=== PATIENT | male | born 1995 | race Caucasian/White ===

== ENCOUNTER 2022-04-24 01:44 | Inpatient (IN) | payer OTHER, SELFPAY ==
[2022-04-24 01:45] VITALS: BMI 28.1
[2022-04-24 01:50] VITALS: BP 130/82; PULSE 88; RESP 16; TEMP 36.6; O2SAT 97
[2022-04-24 02:26] LABS: Basophils # 0.1 10^3/uL (0.0-0.1); Basophils % 1.3 %; Eosinophils # 0.7 10^3/uL (0.0-0.8); Eosinophils % 8.7 %; Hematocrit 43.4 % (42.0-52.0); Hemoglobin 15.1 g/dL (11.7-16.6); Lymphocytes # 1.9 10^3/uL (0.8-4.8); Lymphocytes % 23.2 %; Mean Corpuscular HGB Conc 34.8 g/dL (30.0-36.0); Mean Corpuscular Hemoglobin 30.3 pg (28.0-34.0); Mean Platelet Volume 9.8 fL (7.4-10.4); Monocytes # 0.8 10^3/uL (0.2-0.9); Monocytes % 9.1 %; Neutrophils # 4.79 10^3/uL (1.8-7.7); Neutrophils % 57.3 %; Nucleated Red Blood Cells % 0 %; Platelet Count 308 10^3/cmm (130-400); Red Blood Count 4.99 10^6/uL (4.1-5.3); White Blood Count 8.4 10^3/uL (4.0-10.0)
[2022-04-24 02:51] LABS: Alanine Aminotransferase 23 U/L (0-41); Albumin Level 4.5 g/dL (3.5-5.2); Alkaline Phosphatase 81 U/L (40-130); Anion Gap 19.6 (5-19); Aspartate Amino Transferase 28 U/L (0-40); Blood Urea Nitrogen 10 mg/dL (6-20); Calcium 9.1 mg/dL (8.5-10.5); Carbon Dioxide 25 mmol/L (22-29); Chloride 103 mmol/L (98-107); Globulin 2.4 g/dL (1.3-4.6); Glomerular Filtration Rate 117.8 mL/min (90-130); Glucose 113 mg/dL (65-115); Osmolality Calculated 296 mOsm/kg (285-295); Potassium 4.6 mmol/L (3.5-5.1); Sodium 143 mmol/L (136-145); Total Bilirubin 0.3 mg/dL (0.15-1.2); Total Protein 6.9 g/dL (6.6-8.7)
[2022-04-24 02:52] LABS: Acetaminophen < 5.0 ug/mL (10-30); Salicylate < 0.3 mg/dL (3-10)
--- NOTE | 2022-04-24 03:38 | W.ED.PSYCHS ---
HPI - Psych General: Chief Complaint: ER Hold Stated Complaint: Suicidal Ideation Time Seen by Provider: 04/24/22 02:14 Source: patient and police History of Present Illness: 27-year-old [employer] with a history of PTSD. He presents after telling police tonight that he wanted to . He has several stresses in his life. He has been trying to get established with psychiatry in the [place] system, but has not been able to get an appointment. He states that they keep getting canceled. He presents tearful, stating that he is ready to . He admits to drinking alcohol, but does not appear intoxicated. MD complaint: suicidal ideation and feels depressed Onset (ago): hour(s) Duration: constant History of same: Yes Relieving factors: none Exacerbating factors: other Associated symptoms: Reports depression and suicidal ideation; Deny auditory hallucinations, visual hallucinations, delusions, homicidal ideation or racing thoughts Treatments prior to arrival: none If self harm: admits thoughts of self harm Review of Systems Const: Denies: fever(s), chills or body aches Eyes: Denies: change in vision ENMT: Denies: throat pain Card: Denies: chest pain or palpitations Resp: Denies: dyspnea, productive cough, non-productive cough or wheezing GI: Denies: abdominal pain, nausea, vomiting, diarrhea or hematochezia Skin/Breast: Denies: rash Neuro: Denies: headache(s), weakness in extremities, dizziness or confusion Psych: Reports: depression and suicidal ideation; Denies: visual hallucinations, auditory hallucinations or homicidal ideation Physical Exam Const: GENERAL APPEARANCE: cooperative and in distress; not ill appearing and not frail appearing ORIENTATION/CONSCIOUSNESS: Yes awake HENMT: COMMON NORMALS: normocephalic, atraumatic and Normal external nose present HEAD & SCALP: normocephalic and atraumatic FACE & SINUS: normal facial exam and face symmetric NOSE: Normal external nose present Eye: COMMON NORMALS: Equal, round and reactive pupils present and EOMs intact bilaterally PUPIL: Yes Equal, round and reactive pupils present Neck/C-Spine: GENERAL: Yes trachea midline Chest: CHEST: Yes Symmetrical chest wall rise Resp: COMMON NORMALS: normal respiratory effort, No retractions, No use of accessory muscles and clear to auscultation bilaterally AUSCULTATION: clear to auscultation bilaterally Cardio: COMMON NORMALS: regular rate and regular rhythm RATE: regular rate RHYTHM: regular rhythm GI: COMMON NORMALS: Normal to inspection, nondistended, normoactive bowel sounds present Extremity: COMMON NORMALS: no pedal edema Neuro: LAURA COMA SCALE: document GCS findings [place] coma scale eye opening: Spontaneous [place] coma scale verbal response: Orientated [place] coma scale motor response: Obey commands [place] coma scale total score: 15 SENSORY EXAM: Yes extremities (intact) Psych: COMMON NORMALS: Normal thought process present and speech normal APPEARANCE: Yes grossly normal ATTITUDE: Yes Withdrawn affect present ACTIVITY/MOTOR BEHAVIOR: Yes psychomotor slowing SPEECH: Yes normal speech MOOD & AFFECT: Yes depressed mood and Yes tearful THOUGHT PROCESS: Normal thought process present THOUGHT CONTENT: Yes Suicidality present, No Homicidality present, No delusions and No Hallucination(s) present ATTENTION/CONCENTRATION: Yes attention grossly intact and Yes concentration grossly intact MEMORY/COGNITION: Yes memory grossly intact and Yes cognition grossly intact INSIGHT: Fair insight present (Psych) JUDGEMENT: Fair judgement present (Psych) Skin: COMMON NORMALS: no rashes or lesions noted GENERAL SKIN EXAM: no rashes or lesions noted Course Vital Signs: Vital signs: Vital Signs Temperature 98.1 F 04/25/22 13:59 Pulse Rate 81 04/25/22 13:59 Respiratory Rate 20 H 04/25/22 13:59 Blood Pressure 117/74 04/25/22 13:59 Pulse Oximetry 97 04/25/22 13:59 Oxygen Delivery Me thod 04/25/22 06:00 MDM - Psych Medical Decision Making Laboratories not remarkable. This patient is well from a physical standpoint. From a psychiatric standpoint, he is incredibly depressed, and has a high likelihood of suicide completion. He will have to be placed under 96-hour hold. Police have written an affidavit. He has been calm and cooperative here. We will speak with psychiatry about a bed. Have tried to call psychiatry 3 times. No answer as of yet. Spoke with psychiatry. We will admit to the NPU. He remains medically stable. Lab Data : 04/24/22 02:19 04/24/22 02:19 Laboratory Results WBC 8.4 10^3/uL (4.0-10.0) 04/24/22 02:19 RBC 4.99 10^6/uL (4.1-5.3) 04/24/22 02:19 Hgb 15.1 g/dL (11.7-16.6) 04/24/22 02:19 Hct 43.4 % (42.0-52.0) 04/24/22 02:19 MCV 87.0 fl (80-94) 04/24/22 02:19 MCH 30.3 pg (28.0-34.0) 04/24/22 02:19 MCHC 34.8 g/dL (30.0-36.0) 04/24/22 02:19 RDW 13.0 % (12.1-15.1) 04/24/22 02:19 Plt Count 308 10^3/cmm (130-400) 04/24/22 02:19 MPV 9.8 fL (7.4-10.4) 04/24/22 02:19 Neut % (Auto) 57.3 % 04/24/22 02:19 Lymph % (Auto) 23.2 % 04/24/22 02:19 [place] % (Auto) 9.1 % 04/24/22 02:19 Eos % (Auto) 8.7 % 04/24/22 02:19 Baso % (Auto) 1.3 % 04/24/22 02:19 Neut # (Auto) 4.79 10^3/uL (1.8-7.7) 04/24/22 02:19 Lymph # (Auto) 1.9 10^3/uL (0.8-4.8) 04/24/22 02:19 [place] # (Auto) 0.8 10^3/uL (0.2-0.9) 04/24/22 02:19 Eos # (Auto) 0.7 10^3/uL (0.0-0.8) 04/24/22 02:19 Baso # (Auto) 0.1 10^3/uL (0.0-0.1) 04/24/22 02:19 Nucleated RBC % (auto) 0 % 04/24/22 02:19 Nucleated RBCs # 0.0 /100WBC 04/24/22 02:19 Sodium 143 mmol/L (136-145) 04/24/22 02:19 Potassium 4.6 mmol/L (3.5-5.1) 04/24/22 02:19 Chloride 103 mmol/L (98-107) 04/24/22 02:19 Carbon Dioxide 25 mmol/L (22-29) 04/24/22 02:19 Anion Gap 19.6 (5-19) H 04/24/22 02:19 BUN 10 mg/dL (6-20) 04/24/22 02:19 Creatinine 0.8 mg/dL (0.7-1.2) 04/24/22 02:19 GFR Calculation 117.8 mL/min (90-130) 04/24/22 02:19 Glucose 113 mg/dL (65-115) 04/24/22 02:19 Calculated Osmolality 296 mOsm/kg (285-295) H 04/24/22 02:19 Calcium 9.1 mg/dL (8.5-10.5) 04/24/22 02:19 Total Bilirubin 0.3 mg/dL (0.15-1.2) 04/24/22 02:19 AST 28 U/L (0-40) 04/24/22 02:19 ALT 23 U/L (0-41) 04/24/22 02:19 Alkaline Phosphatase 81 U/L (40-130) 04/24/22 02:19 Total Protein 6.9 g/dL (6.6-8.7) 04/24/22 02:19 Albumin 4.5 g/dL (3.5-5.2) 04/24/22 02:19 Globulin 2.4 g/dL (1.3-4.6) 04/24/22 02:19 Urine Color Yellow (Yellow) 04/24/22 08:25 Urine Appearance Clear (CLEAR) 04/24/22 08:25 Urine pH 5 (5-7) 04/24/22 08:25 Ur Specific [place] 1.025 (1.005-1.030) 04/24/22 08:25 Urine Protein Neg (Negative) 04/24/22 08:25 Urine Glucose (UA) Norm (Normal) 04/24/22 08:25 Urine Ketones 1+ (Negative) H 04/24/22 08:25 Urine Blood Neg (Negative) 04/24/22 08:25 Urine Nitrate Negative (Negative) 04/24/22 08:25 Urine Bilirubin Neg (Negative) 04/24/22 08:25 Urine Urobilinogen Norm mg/dL (Negative) 04/24/22 08:25 Ur Leukocyte Esterase Negative (Negative) 04/24/22 08:25 Salicylates < 0.3 mg/dL (3-10) L 04/24/22 02:19 Urine Opiates Screen Negative ng/mL (Negative) 04/24/22 08:25 Acetaminophen < 5.0 ug/mL (10-30) L 04/24/22 02:19 Ur Barbiturates Screen Negative ng/mL (Negative) 04/24/22 08:25 Ur Phencyclidine Scrn Negative ng/mL (Negative) 04/24/22 08:25 Ur Amphetamines Screen Negative ng/mL (Negative) 04/24/22 08:25 U Benzodiazepines Scrn Negative ng/mL (Negative) 04/24/22 08:25 Urine Cocaine Screen Negative ng/mL (Negative) 04/24/22 08:25 U Marijuana (THC) Screen Negative ng/mL (Negative) 04/24/22 08:25 Discharge Plan Discharge Patient Disposition: Admitted As Inpatient Admit Provider: Isreal Bowen Clinical Impression: Suicidal ideation, Depression Condition: Stable Discharge Diet: Advance as tolerated Discharge Activity: Resume usual activity Coding Level of Care Code ED Inpatient Coder for Chg Fwd Exam Comprehensive
[2022-04-24 06:12] VITALS: PULSE 99; RESP 16; O2SAT 96
--- NOTE | 2022-04-24 06:15 | PC.NURSE ---
Pt resting in bed with eyes closed, used pulse oximeter to monitor oxygen saturation and advised pt that we will need a urine sample when he needs to urinate.
--- NOTE | 2022-04-24 08:14 | PC.PHAR ---
Addendum entered by Trudi Ang 04/24/22 08:15: [facility] [place] [facility] Original Note: pt states he takes no rx or otc medications
[2022-04-24 08:29] LABS: Add Urine Microscopic? NO; Charge for UA Resulting for Rev
[2022-04-24 08:40] LABS: Amphetamines Screen Urine Negative (Negative); Barbiturates Screen Urine Negative (Negative); Benzodiazepines Screen Urine Negative (Negative); Cocaine Screen Urine Negative (Negative); Opiate Screen Urine Negative (Negative); PCP Screen Urine Negative (Negative); THC Screen Urine Negative (Negative)
[2022-04-24 08:57] VITALS: BP 132/89; PULSE 101; RESP 13; O2SAT 95
[2022-04-24 08:59] LABS: Bilirubin Urine Neg (Negative); Blood Urine Neg (Negative); Glucose Urine UA Norm (Normal); Ketones Urine 1+ (Negative); Leukocyte Esterase Urine Negative (Negative); Nitrate Urine Negative (Negative); Protein Urine Neg (Negative); Specific Gravity, Urine 1.025 (1.005-1.030); Urine Appearance Clear (CLEAR); Urine Color Yellow (Yellow); Urobilinogen Urine Norm (Negative); pH Urine 5 (5-7)
--- NOTE | 2022-04-24 11:50 | PC.NURSE ---
Patient was given breakfast and refused to eat. Lunch was just delivered
[2022-04-24 13:15] VITALS: BP 109/73; PULSE 88; RESP 16; TEMP 36.7; O2SAT 96
[2022-04-24 14:00] VITALS: BP 130/86; PULSE 98; RESP 16; TEMP 36.6; O2SAT 98
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
--- NOTE | 2022-04-24 15:30 | PC.OT ---
Pt. not appropriate for evaluation for groups at this time. Will attempt an evaluation in the morning of 04/25.
[2022-04-24] MEDS: nicotine 2 mg Gum BUCCAL (16:27)
--- NOTE | 2022-04-24 19:34 | PC.NURSE ---
[facility]PROV[facility] FOR [facility] TO STAY AT THIS FACILITY AUTH NUMBER - [id number] REF NUMBER - [id number]
[2022-04-24 22:00] VITALS: BP 145/94; PULSE 84; RESP 20; TEMP 36.8; O2SAT 100
[2022-04-25 06:00] VITALS: BP 117/74; PULSE 81; RESP 20; TEMP 36.7; O2SAT 97
[2022-04-25] MEDS: nicotine 4 mg lozenge MUCOUS MEM ×2 (08:34→12:49)
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
[2022-04-25 13:59] VITALS: BP 117/74; PULSE 81; RESP 20; TEMP 36.7; O2SAT 97
[2022-04-25 14:00] VITALS: BP 147/91; PULSE 76; RESP 16; TEMP 36.6; O2SAT 98
== END 2022-04-25 15:00 | disposition home or self-care (01) | DRG 881 ==
LOC: ER 03:44 → NP 12:55
PROVIDERS: Admitting Provider Psychiatry & Neurology Psychiatry; Emergency Provider Emergency Medicine; Visit Provider Psychiatry & Neurology Psychiatry
DX: F32.A Depression, unspecified (principal); R45.851 Suicidal ideations; F43.10 Post-traumatic stress disorder, unspecified; Z62.810 Personal history of physical and sexual abuse in childhood
CPT/HCPCS: 80053; 80306; 80307; 81003; 85025; 97150; 97165; 99285